=== PATIENT | male | born 1945 | race African-American/Black ===

== ENCOUNTER 2025-04-02 10:44 | Inpatient (IN) | payer OTHER, MEDICARE ==
[~2025-04-02] VITALS: Ht 175.3 cm; Wt 95.3 kg
[2025-04-02 10:55] VITALS: O2SAT 98
[2025-04-02 11:31] LABS: BASOPHILS % 0.5 % (0.0-2.0); EOSINOPHILS % 2.5 % (0.0-5.0); HEMATOCRIT. 38.7 % (42.0-52.0); HEMOGLOBIN. 13.0 g/dL (14.0-18.0); LYMPHOCYTES % 22.4 % (20.0-50.0); MEAN PLATELET VOLUME 8.0 fl (7.4-10.4); MONOCYTES % 9.4 % (2.0-8.0); NEUTROPHILS % 65.2 % (40.0-76.0); PLATELET 183 x1000/uL (130-400); RED BLOOD CELL COUNT 4.36 mill/uL (4.7-6.1); RED CELL DISTRIBUTION WIDTH 14.8 % (11.6-14.6)
[2025-04-02 11:45] LABS: CREATININE 1.3 mg/dL (0.6-1.3); TROPONIN I HIGH SENSITIVITY 11 ng/L (3.0-53); UREA NITROGEN BLOOD 13 mg/dL (9-23)
[2025-04-02] MEDS ORDERED: LEVOFLOXACIN 500MG PREMIX 100 ML IV ONE (13:15)
[2025-04-02] MEDS: LEVOFLOXACIN 500MG PREMIX 100 ML IV SCH (15:30)
[2025-04-02] MEDS: HYDRALAZINE 20MG/ML VIAL IV PRN (15:55)
[2025-04-02] MEDS: AMLODIPINE 10MG TABLET PO SCH ×2 (16:43→17:00)
[2025-04-02] MEDS: LOSARTAN 50 MG TABLET PO SCH ×2 (16:43→17:00)
[2025-04-02] MEDS ORDERED: DOPAMINE 400MG/250ML PREMIX 250 ML IV PRN (16:45)
[2025-04-02 20:00] VITALS: BP 206/87; PULSE 78; RESP 18; TEMP 36.7; O2SAT 96
[2025-04-02] MEDS: CLONIDINE 0.1MG TABLET PO PRN (20:42)
[2025-04-02 22:34] VITALS: BP 206/87; PULSE 78; RESP 18; TEMP 36.696
[2025-04-03] VITALS: BP 123/45; PULSE 82; RESP 17; TEMP 36.8; O2SAT 97
[2025-04-03] MEDS ORDERED: ACETAMINOPHEN 325MG TABLET PO PRN (02:15)
[2025-04-03] MEDS ORDERED: ONDANSETRON HCL 4MG/2ML INJ IV PRN (02:15)
[2025-04-03] MEDS: HYDROCODONE/ACETAMINOPHEN 5/325MG TABLET PO PRN ×2 (02:18→09:08)
[2025-04-03 04:00] VITALS: BP 185/67; PULSE 71; RESP 18; TEMP 36.4; O2SAT 97
[2025-04-03 08:00] VITALS: BP 159/75; PULSE 99; RESP 18; TEMP 36.6; O2SAT 98
[2025-04-03] MEDS: LOSARTAN 100 MG TABLET PO SCH (09:06)
[2025-04-03] MEDS: HYDRALAZINE HCL 50MG TABLET PO NR (09:07)
[2025-04-03 12:00] VITALS: BP 127/62; PULSE 84; RESP 18; TEMP 36.4; O2SAT 96
[2025-04-03] MEDS: HYDRALAZINE HCL 50MG TABLET PO SCH (15:15)
[2025-04-03 16:00] VITALS: BP 115/52; PULSE 63; RESP 18; TEMP 36.7; O2SAT 98
[2025-04-03 20:00] VITALS: BP 140/61; PULSE 86; RESP 18; TEMP 36.7; O2SAT 98
[2025-04-04] VITALS: BP 138/66; PULSE 91; RESP 18; TEMP 36.4; O2SAT 98
[2025-04-04 04:00] VITALS: BP 123/55; PULSE 74; RESP 17; TEMP 36.3; O2SAT 98
[2025-04-04] MEDS ORDERED: LOSA100T33 PO (08:45)
[2025-04-04] MEDS ORDERED: HYDR50TA40 MT (08:45)
[2025-04-04] MEDS ORDERED: AMLO10TA80 PO (08:45)
[2025-04-04] MEDS ORDERED: HYDR100T11 MT (09:22)
[2025-04-04] MEDS ORDERED: LOSA100T33 MT (09:22)
[2025-04-04 11:55] VITALS: BP 160/87; PULSE 97; RESP 17; TEMP 36.8; O2SAT 96
[2025-04-04 15:58] VITALS: BP 134/59; PULSE 61; RESP 18; TEMP 97.5
[2025-04-04 16:00] VITALS: BP 134/59; PULSE 61; RESP 18; TEMP 36.4; O2SAT 100
[2025-04-04 17:21] VITALS: BP 134/59; PULSE 82; RESP 18
[2025-04-04] MEDS: HYDROCODONE/ACETAMINOPHEN 10/325MG TABLET PO PRN (17:21)
[2025-04-04 18:38] LABS: CLARITY URINE CLEAR (CLEAR); COLOR URINE YELLOW (YELLOW); PH URINE 5.5 (4.5-8.0); PROTEIN URINE TRACE (NEGATIVE); SPECIFIC GRAVITY URINE 1.019 (1.005-1.030)
[2025-04-04 18:39] LABS: GLUCOSE URINE NEGATIVE (NEGATIVE); KETONES URINE NEGATIVE (NEGATIVE); LEUKOCYTE ESTERASE URINE NEGATIVE (NEGATIVE); NITRITE URINE NEGATIVE (NEGATIVE); OCCULT BLOOD URINE NEGATIVE (NEGATIVE); UROBILINOGEN URINE 0.2 E.U./dL (0.2-1.0)
== END 2025-04-04 20:55 | disposition home or self-care (01) | DRG 74 ==
LOC: ER 10:44 → 5WST 13:21 → CANRESERV 16:19 → ENRESERV 16:19
PROVIDERS: ADMIT Internal Medicine; ATTEND Internal Medicine
DX: G90.89 Other disorders of autonomic nervous system (principal); I16.1 Hypertensive emergency; E66.9 Obesity, unspecified; I44.1 Atrioventricular block, second degree; E78.5 Hyperlipidemia, unspecified; I10 Essential (primary) hypertension; Z68.31 Body mass index [BMI] 31.0-31.9, adult
CPT/HCPCS: 36415; 71045; 80048; 81003; 84484; 85025; 93005; 93306; 99285; J0360; J1956